=== PATIENT | male | born 1955 | race Caucasian/White ===

== ENCOUNTER 2020-06-22 20:20 | Emergency (ER) | payer OTHER ==
[2020-06-22 20:32] VITALS: BP 148/95; PULSE 89; TEMP 98.3; BMI 28.4
[2020-06-22 21:15] LABS: BASO % 1.6 % (0-2.0); EOS % 3.3 % (0-4.5); HEMATOCRIT 40.8 % (35.4-49); HEMOGLOBIN 13.8 GM/dl (11.7-16.9); MCH 31.9 pg (25.7-33.7); MCHC 33.8 g/dl (32.0-35.9); MEAN CELL VOLUME 94.6 fl (80-96); MEAN PLT VOLUME 8.2 fl (7.5-11.1); MONO % 7.5 % (3.8-10.2); NEUT % 63.6 % (42.8-82.8); PLATELET COUNT 348 K/MM3 (134-434); RBC 4.31 M/mm3 (4.00-5.60); RDW 11.9 % (11.9-15.9); WHITE BLOOD COUNT 7.3 K/mm3 (4.0-10.8)
[2020-06-22 21:28] LABS: ALBUMIN 4.1 g/dl (3.4-5.0); ALK PHOS 31 U/L (45-117); ANION GAP 10 MMOL/L (8-16); BILIRUBIN,TOTAL 0.7 mg/dl (0.2-1); CALCIUM 9.8 mg/dl (8.5-10); CHLORIDE 102 mmol/L (98-107); CO2 28 mmol/L (21-32); CREATININE 1.4 mg/dl (0.55-1.3); GLUCOSE,RANDOM 102 mg/dl (74-106); POTASSIUM 3.2 mmol/L (3.5-5.1); SGOT/AST 22 U/L (15-37); SGPT/ALT 20 U/L (13-61); SODIUM 140 mmol/L (136-145); TOT PROT 6.8 g/dl (6.4-8.2)
[2020-06-22] MEDS ORDERED: POTASSIUM CHLORIDE TABS 20 MEQ TABLET.ER (FP) PO ONE ×2 (22:32)
== END 2020-06-22 22:43 | disposition home or self-care (01) ==
LOC: FER 20:20
DX: S00.03XA Contusion of scalp, initial encounter (principal)
CPT/HCPCS: 36415; 70450-TC; 80053; 82550; 82553; 84484; 85025; 93005; 99285-25

== ENCOUNTER 2021-07-19 04:48 | Day surgery (SDC) | payer OTHER ==
[2021-07-17 09:27] VITALS: BMI 29.0
[2021-07-19 09:16] VITALS: TEMP 97.8
[2021-07-19 09:46] VITALS: BP 129/74; PULSE 75
== END 2021-07-19 10:25 | disposition home or self-care (01) ==
LOC: JASU-ENDO 04:48
PROVIDERS: ATTEND Internal Medicine Gastroenterology
PROC: 0DBP8ZX Excision of Rectum, Via Natural or Artificial Opening Endoscopic, Diagnostic (ICD-10-PCS; principal; 2021-07-19 09:00)
DX: Z12.11 Encounter for screening for malignant neoplasm of colon (principal); D12.8 Benign neoplasm of rectum; K57.30 Diverticulosis of large intestine without perforation or abscess without bleeding; Z86.010 Personal history of colon polyps
CPT/HCPCS: 88305-TC

== ENCOUNTER 2021-08-10 12:42 | Emergency (ER) | payer OTHER ==
[2021-08-10 12:51] VITALS: BMI 28.1
[2021-08-10] MEDS ORDERED: BEBTELOVIMAB (EUA) 175 MG/2 ML VIAL IVPUSH ONE (13:44)
[2021-08-10 15:08] VITALS: BP 123/72; PULSE 81; TEMP 97.9
== END 2021-08-10 15:18 | disposition home or self-care (01) ==
LOC: JER 12:42
PROC: 3E033GC Introduction of Other Therapeutic Substance into Peripheral Vein, Percutaneous Approach (ICD-10-PCS; principal; 2021-08-10)
DX: U07.1 COVID-19 (principal)
CPT/HCPCS: 99284-25; Q0222